=== PATIENT | female | born 1965 | race Two or more races ===

== ENCOUNTER 2025-01-30 10:26 | Day surgery (SDC) | payer OTHER ==
[2025-01-25 09:12] LABS: HEMATOCRIT 39.2 % (36.0-45.00); HEMOGLOBIN 13.2 g/dL (12.0-15.00); MEAN CORPUSCULAR HEMOGLOBIN 29.6 pg (27.00-32.0); MEAN CORPUSCULAR HGB CONC 33.7 g/dl (32.0-36.0); PLATELET COUNT 249 K/uL (150-450); RED BLOOD COUNT 4.46 M/uL (4.00-6.00); RED CELL DISTRIBUTION WIDTH 13.4 % (11.5-14.5)
[2025-01-25 09:19] LABS: PH,URINE 6.5 (5.0-8.0); URINE APPEARANCE Clear; URINE BILIRRUBIN Negative (NEGATIVE); URINE BLOOD Negative; URINE COLOR Yellow; URINE GLUCOSE Negative (NEGATIVE); URINE KETONE Negative (NEGATIVE); URINE LEUKOCYTE Negative; URINE NITRATE Negative; URINE PROTEIN Negative (NEGATIVE); URINE UROBILINOGEN 0.2 E.U./dl
[2025-01-25 09:25] LABS: URINE BACTERIA 1029.3 uL (0.0-1933); URINE EPITHELIAL CELLS 20.7 uL (0.0-38.8); URINE RBC 5.1 uL (0.0-20.8); URINE WBC 5.2 uL (0.0-23.2)
[2025-01-25 09:27] VITALS: BP 117/82
[2025-01-25 09:42] LABS: INR 0.95; PARTIAL THROMBOPLASTIN TIME 29.4 SECONDS (22.0-34.0); PROTHROMBIN TIME 10.4 SECONDS (9.0-11.5)
[2025-01-25 10:30] LABS: ALBUMIN 3.7 gm/dL (3.4-5.0); ALKALINE PHOSPHATASE 95 U/L (50-136); ALT/SGPT 21 U/L (12-78); AST/SGOT 15 U/L (15-37); BILIRUBIN TOTAL 0.42 mg/dL (0.3-1.2); BLOOD UREA NITROGEN 12 mg/dL (7-18); BUN CREA RATIO 18 (7.0-25.0); CALCIUM 9.3 mg/dL (8.5-10.1); CARBON DIOXIDE 31 mEq/L (21-32); CHLORIDE 113 mmol/L (98-107); CREATININE SERUM 0.66 mg/dL (0.55-1.02); GFR 91.66; GLUCOSE FASTING 83 mg/dL (65-100); OSMOLALITY SERUM 269 MOSM/KG (275-295); POTASSIUM 4.04 mEq/L (3.5-5.1); SODIUM 135 mmol/L (136-145); TOTAL PROTEIN 6.7 gm/dL (6.4-8.2)
[~2025-01-30] VITALS: Ht 160 cm; Wt 73.5 kg
[~2025-01-30 10:26] MED LIST: LEXAPRO20 MG PO; PROTONIX40 MG PO
[2025-01-30] MEDS ORDERED: CEFAZOLIN SODIUM 1,000 MG VIAL ONE (15:50)
[2025-01-30] MEDS ORDERED: ONDANSETRON HCL 2 MG/ML VIAL ONE (22:52)
[2025-01-30] MEDS ORDERED: ONDANSETRON HCL 2 MG/ML VIAL IV ONE (22:55)
[2025-01-30] MEDS ORDERED: MORPHINE SULFATE 4 MG/ML VIAL IV ONE (22:55)
== END 2025-01-31 | disposition home or self-care (01) ==
LOC: CIR.AMB 10:26
PROVIDERS: ATTEND Surgery
DX: K80.10 Calculus of gallbladder with chronic cholecystitis without obstruction (principal); Z91.041 Radiographic dye allergy status; Z91.013 Allergy to seafood; J45.909 Unspecified asthma, uncomplicated; K21.9 Gastro-esophageal reflux disease without esophagitis